=== PATIENT | female | born 1995 | race Caucasian/White ===

== ENCOUNTER 2017-07-02 17:12 | Emergency (ER) | payer BC, OTHER ==
[~2017-07-02] VITALS: Ht 147.3 cm; Wt 70.7 kg
[2017-07-02 17:22] VITALS: TEMP 36.4; Ht 147.3 cm; Wt 70.7 kg
[2017-07-02 17:26] VITALS: O2SAT 99
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
[2017-07-02 20:36] VITALS: BP 122/95; PULSE 97; O2SAT 97
== END 2017-07-02 21:00 | disposition home or self-care (01) ==
LOC: C.EDB 17:14
DX: F10.929 Alcohol use, unspecified with intoxication, unspecified (principal); Y90.6 Blood alcohol level of 120-199 mg/100 ml; F12.90 Cannabis use, unspecified, uncomplicated

== ENCOUNTER 2017-10-31 17:44 | Emergency (ER) | payer OTHER ==
[~2017-10-31] VITALS: Ht 147.3 cm; Wt 74.7 kg
[2017-10-31 17:55] VITALS: TEMP 37.2; Ht 147.3 cm; Wt 74.7 kg
[2017-10-31] MEDS ORDERED: RALTEGRAVIR POTASSIUM TAB 400 MG TAB PO STA (22:00)
[2017-10-31] MEDS ORDERED: AZITHROMYCIN 250 MG TAB PO STA (22:00)
[2017-10-31] MEDS ORDERED: EMTRICITABINE/TENOFOVIR TAB PO STA (22:00)
[2017-10-31] MEDS ORDERED: PHENERGAN 25MG HOMEPACK PO ONE (22:00)
[2017-10-31] MEDS ORDERED: CEFTRIAXONE SOD 350MG/ML 1 GM VIAL IM STA (22:00)
[2017-10-31] MEDS ORDERED: METRONIDAZOLE 250 MG TAB PO STA (22:00)
[2017-10-31] MEDS ORDERED: CETI10TA84 PO (23:16)
[2017-10-31] MEDS ORDERED: SERT-234 PO (23:17)
[2017-10-31] MEDS ORDERED: ATV/1 SL (23:18)
[2017-10-31] MEDS ORDERED: BCPILLS PO (23:20)
[2017-11-01] MEDS ORDERED: HIV POST EXPOSURE PROPHYLAXIS KIT ONE ×2 (00:41→00:45)
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
[2017-11-01] MEDS ORDERED: RALT400T PO (00:58)
[2017-11-01] MEDS ORDERED: TRVHP PO (00:58)
[2017-11-01] MEDS ORDERED: METR-163 PO (00:58)
[2017-11-01] MEDS ORDERED: METOCLOPRAMIDE HCL 5 MG TAB PO ONE (01:00)
[2017-11-01 01:06] VITALS: BP 124/88; PULSE 84; O2SAT 99
== END 2017-11-01 01:06 | disposition home or self-care (01) ==
LOC: C.EDB 17:46
DX: Z04.41 Encounter for examination and observation following alleged adult rape (principal); S30.814A Abrasion of vagina and vulva, initial encounter; X58.XXXA Exposure to other specified factors, initial encounter; Y07.59 Other non-family member, perpetrator of maltreatment and neglect; E28.2 Polycystic ovarian syndrome; Z79.3 Long term (current) use of hormonal contraceptives